=== PATIENT | female | born 1965 ===

== ENCOUNTER → 2017-05-27 | Outpatient (CLI) | payer OTHER ==
[2017-05-27 08:36] LABS: Basophils # (auto) 0 uL; Basophils % (auto) 1.1 % (0.0-2.0); Eosinophils # (auto) 0.1 uL; Eosinophils % (auto) 3.3 % (0.0-7.0); Hematocrit 40.1 % (36.0-46.0); Hemoglobin 13.4 g/dL (12.2-16.2); Lymphocytes # (auto) 1.5 uL; Lymphocytes % (auto) 35.1 % (10.0-50.0); Mean Corpuscular Hemoglobin 25.9 pg (28.0-32.0); Mean Corpuscular Hgb Conc. 33.3 g/dL (32.0-36.0); Mean Corpuscular Volume 77.8 fL (80.0-100.0); Monocytes # (auto) 0.5 uL; Monocytes % (auto) 12.3 % (0.0-12.0); Neutrophils # (auto) 2.1 uL; Neutrophils % (auto) 48.2 % (37.0-80.0); Nucleated Red Blood Cells % 0.1 %; Platelet Count (auto) 238 10^3/uL (140-450); Red Cell Distribution Width 14.8 % (11.8-14.3); White Blood Cell 4.3 10^3/uL (4.4-10.8)
[2017-05-27 09:18] LABS: Urine Bilirubin Negative (Negative); Urine Blood Negative /uL (Negative); Urine Color Yellow (Yellow); Urine Glucose Normal (Normal); Urine Ketone Negative (Negative); Urine Mucus FEW (None Seen); Urine Nitrite Negative (Negative); Urine RBC 12 /hpf (0 - 4); Urine Squamous Epithelial Cell MOD /hpf (<5); Urine Urobilinogen Normal (Negative)
[2017-05-27 09:19] LABS: Albumin 3.4 g/dL (3.4-5.0); BUN/Creatinine Ratio 10.8; Bilirubin, Total 0.3 mg/dL (0.2-1.0); Calcium 8.9 mg/dL (8.5-10.1); Potassium 3.8 mmol/L (3.5-5.1)
== END | disposition home or self-care (01) ==
LOC: LAB 08:11
PROVIDERS: ATTEND Internal Medicine
DX: K59.00 Constipation, unspecified (principal); R53.83 Other fatigue
CPT/HCPCS: 36415; 80053; 80061; 81001; 84439; 84443; 85025; 85652

== ENCOUNTER → 2017-07-02 | Outpatient (CLI) | payer OTHER | END | disposition home or self-care (01) | LOC: LAB 14:58 | PROVIDERS: ATTEND Obstetrics & Gynecology | DX: N93.9 Abnormal uterine and vaginal bleeding, unspecified (principal); R94.6 Abnormal results of thyroid function studies | CPT/HCPCS: 36415; 82670; 83001; 83002; 84403; 84443 ==

== ENCOUNTER → 2022-04-30 | Outpatient (CLI) | payer OTHER ==
[2022-04-30 09:18] LABS: Basophils # (auto) 0 10 ^3/uL (0-0.2); Eosinophils # (auto) 0.2 10 ^3/uL (0-0.8); Lymphocytes # (auto) 1.3 10 ^3/uL (0.4-5.4); Monocytes # (auto) 0.4 10 ^3/uL (0-1.3)
[2022-04-30 09:20] LABS: Basophils % (auto) 1.2 % (0.0-2.0); Hematocrit 39.1 % (36.0-46.0); Hemoglobin 12.4 g/dL (12.2-16.2); Mean Corpuscular Hemoglobin 24.2 pg (28.0-32.0); Mean Corpuscular Hgb Conc. 31.6 g/dL (32.0-36.0); Mean Corpuscular Volume 76.6 fL (80.0-100.0); Monocytes % (auto) 12.6 % (0.0-12.0); Neutrophils # (auto) 1.4 10 ^3/uL (1.6-8.6); Neutrophils % (auto) 40.2 % (37.0-80.0); Nucleated Red Blood Cells % 0.2 %; Red Blood Cells 5.11 10^6/uL (4.0-5.20); Red Cell Distribution Width 15.5 % (11.8-14.3); White Blood Cell 3.4 10^3/uL (4.4-10.8)
[2022-04-30 09:55] LABS: Albumin 3.3 g/dL (3.4-5.0); Potassium 3.9 mmol/L (3.5-5.1)
[2022-04-30 10:00] LABS: BUN/Creatinine Ratio 18.1; Bilirubin, Total 0.3 mg/dL (0.2-1.0); Total Protein 7.6 g/dL (6.4-8.2)
== END | disposition home or self-care (01) ==
LOC: LAB 09:06
PROVIDERS: ATTEND Internal Medicine
DX: R06.00 Dyspnea, unspecified (principal)
CPT/HCPCS: 36415; 80053; 83880; 84439; 84443; 85025; 85379; 85652

== ENCOUNTER 2023-09-25 19:58 | Emergency (ER) | payer OTHER ==
[~2023-09-25] VITALS: Ht 165.1 cm; Wt 100.0 kg
[2023-09-25] MEDS ORDERED: methylPREDNISolone SOD SUCC 125 MG/2 ML VL IM ONE (20:30)
[2023-09-25] MEDS ORDERED: ALBUTEROL SULF 2.5 MG/0.5ML(0.5%) NEB SOLN NEB ONE (20:30)
[2023-09-25] MEDS ORDERED: IPRATROPIUM BROM 0.5 MG/2.5ML INH SOL NEB ONE (20:30)
[2023-09-25] MEDS ORDERED: PRED20TA2 PO (20:32)
[2023-09-25 20:45] LABS: Basophils # (auto) 0.1 10 ^3/uL (0-0.2); Basophils % (auto) 0.8 % (0.0-2.0); Eosinophils # (auto) 0.7 10 ^3/uL (0-0.8); Monocytes # (auto) 0.7 10 ^3/uL (0-1.3); Nucleated Red Blood Cells % 0.1 %
[2023-09-25 20:47] LABS: Eosinophils % (auto) 10.9 % (0.0-7.0); Hematocrit 39.8 % (36.0-46.0); Hemoglobin 13.2 g/dL (12.2-16.2); Lymphocytes # (auto) 2.1 10 ^3/uL (0.4-5.4); Lymphocytes % (auto) 31.5 % (10.0-50.0); Mean Corpuscular Hemoglobin 25.8 pg (28.0-32.0); Mean Corpuscular Hgb Conc. 33.1 g/dL (32.0-36.0); Mean Corpuscular Volume 77.8 fL (80.0-100.0); Monocytes % (auto) 10.3 % (0.0-12.0); Neutrophils # (auto) 3.1 10 ^3/uL (1.6-8.6); Neutrophils % (auto) 46.5 % (37.0-80.0); Red Blood Cells 5.11 10^6/uL (4.0-5.20); Red Cell Distribution Width 14.1 % (11.8-14.3); White Blood Cell 6.6 10^3/uL (4.4-10.8)
[2023-09-25 20:48] LABS: Chloride 108 mmol/L (98-107); Potassium 3.8 mmol/L (3.5-5.1); Sodium 142 mmol/L (136-145)
[2023-09-25 20:49] LABS: Anion Gap 6 (5-15); Calcium 9.7 mg/dL (8.5-10.1); Carbon Dioxide 28 mmol/L (20-30)
[2023-09-25 20:54] LABS: BUN/Creatinine Ratio 8.7 (10.0-20.0); Blood Urea Nitrogen 11 mg/dL (9-23); Glucose 104 mg/dL (74-106)
[2023-09-25 22:08] VITALS: BP 141/80; PULSE 91; TEMP 98.1
[2023-09-25 22:09] VITALS: RESP 18; O2SAT 96
== END 2023-09-25 22:09 | disposition home or self-care (01) ==
LOC: ER 19:58
DX: J45.909 Unspecified asthma, uncomplicated (principal); Z77.22 Contact with and (suspected) exposure to environmental tobacco smoke (acute) (chronic)
CPT/HCPCS: 36415; 71045; 80048; 84484; 85025; 85379; 93005; 94640; 96372; 99285; J2930; J7644

== ENCOUNTER → 2023-10-29 | Outpatient (CLI) | payer OTHER ==
[~2023-10-29] MED LIST: PRED20TA2 PO
[2023-10-29 13:24] LABS: Basophils # (auto) 0 10 ^3/uL (0-0.2); Basophils % (auto) 0.7 % (0.0-2.0); Eosinophils # (auto) 0.1 10 ^3/uL (0-0.8); Monocytes # (auto) 0.3 10 ^3/uL (0-1.3)
[2023-10-29 13:26] LABS: Eosinophils % (auto) 1.8 % (0.0-7.0); Hemoglobin 13.5 g/dL (12.2-16.2); Lymphocytes % (auto) 16.9 % (10.0-50.0); Mean Corpuscular Hemoglobin 25.1 pg (28.0-32.0); Mean Corpuscular Hgb Conc. 32.3 g/dL (32.0-36.0); Monocytes % (auto) 4.2 % (0.0-12.0); Neutrophils # (auto) 4.8 10 ^3/uL (1.6-8.6); Neutrophils % (auto) 76.4 % (37.0-80.0); Red Blood Cells 5.39 10^6/uL (4.0-5.20); Red Cell Distribution Width 14.6 % (11.8-14.3); White Blood Cell 6.2 10^3/uL (4.4-10.8)
[2023-10-29 13:28] LABS: Urine Bacteria NONE SEEN /hpf (None Seen); Urine Blood Negative /uL (Negative); Urine Clarity Clear (Clear); Urine Color Yellow (Yellow); Urine Mucus FEW (None Seen); Urine Protein, UAD Negative (Negative); Urine Specific Gravity 1.025 (1.001-1.035); Urine Urobilinogen Normal (Negative); Urine WBC 2 /hpf (0 - 5)
[2023-10-29 14:04] LABS: Erythrocyte Sedimentation Rate 25 mm/hr (0-20)
[2023-10-29 14:09] LABS: Alanine Aminotransferase 25 U/L (7-40); Albumin 4.4 g/dL (3.2-4.8); Alkaline Phosphatase 93 U/L (46-116); Anion Gap 7 (5-15); Aspartate Aminotransferase 19 U/L (13-40); BUN/Creatinine Ratio 10.8 (10.0-20.0); Bilirubin, Total 0.4 mg/dL (0.2-1.0); Blood Urea Nitrogen 9 mg/dL (9-23); Calcium 9.7 mg/dL (8.5-10.1); Carbon Dioxide 27 mmol/L (20-30); Chloride 106 mmol/L (98-107); Cholesterol 347 mg/dL (< 200); Glucose 104 mg/dL (74-106); HDL Cholesterol 70 mg/dL (40-59); LDL Cholesterol 268 mg/dL (< 100); Potassium 3.9 mmol/L (3.5-5.1); Sodium 140 mmol/L (136-145); Total Protein 7.8 g/dL (5.7-8.2); Triglycerides 137 mg/dL (< 150)
== END | disposition home or self-care (01) ==
LOC: LAB 12:44
PROVIDERS: ATTEND Internal Medicine
DX: J45.909 Unspecified asthma, uncomplicated (principal); R35.1 Nocturia
CPT/HCPCS: 36415; 80053; 80061; 81001; 82785; 84439; 84443; 85025; 85652